=== PATIENT | female | born 1955 | race Caucasian/White ===

== ENCOUNTER 2018-08-10 20:16 | Emergency (ER) | payer SELFPAY ==
--- NOTE | 2018-08-10 20:49 | EDM.PDOC ---
ED HPI GENERAL MEDICAL PROBLEM - General Chief Complaint: Back Pain or Injury Stated Complaint: BACK ACHE Time Seen by Provider: 08/10/18 20:30 Source of Information: Reports: Patient History Limitations: Reports: No Limitations - History of Present Illness INITIAL COMMENTS - FREE TEXT/NARRATIVE: Patient comes in the emergency department with complaint of back pain. Patient states that she was doing some desk work with her body bend over for a long period time. She knows around 4 or 5:00pm tonight she began to have muscle spasms in the back. She has had in them past and has been able to control them with ibuprofen going to the chiropractor. However we are now into the weekend and there is no chiropractic services. She did take ibuprofen 800 mg approximately 3 hours ago and has had 0 relief. She describes the pain a throbbing, uncomfortable and spasms. She is unable to get comfortable or fall asleep. She would like for the evaluation and medication to help with the muscle spasms. Patient denies any chest pain, shortness breath, dizziness, lightheadedness, GI upset, urinary concerns or lower extremity edema. Denies any other concerns or complaints per she also denies any numbness or tingling in either upper extremity. States range of motion is intact and CMS is normal. Onset: Sudden Middle Back Pain Score (Numeric/FACES): 8 - Related Data Allergies Allergy/AdvReac Type Severity Reaction Status Date / Time No Known Allergies Allergy Verified 08/10/18 20:23 Home Meds: Home Meds FLUoxetine HCl [Fluoxetine HCl] 20 mg PO DAILY 08/10/18 [History] Insulin NPH Hum/Reg Insulin Hm [Relion Novolin 70-30 Vial] 10,042 unit SQ BID [History] LORazepam 1 - 2 tab PO ASDIRECTED 08/10/18 [History] Losartan/Hydrochlorothiazide [Losartan-HCTZ 50-12.5 MG] 0.5 tab PO DAILY [History] Past Medical History Cardiovascular History: Reports: Hypertension Psychiatric History: Reports: Other (See Below) Other Psychiatric History: denies depression, states she gets "bitchy" when she is not on it. Endocrine/Metabolic History: Reports: Diabetes, Type II Social & Family History - Tobacco Use Smoking Status *Q: Never Smoker ED ROS GENERAL - Review of Systems Review Of Systems: See Below Constitutional: Reports: No Symptoms HEENT: Reports: No Symptoms Respiratory: Reports: No Symptoms Cardiovascular: Reports: No Symptoms Endocrine: Reports: No Symptoms GI/Abdominal: Reports: No Symptoms : Reports: No Symptoms Musculoskeletal: Reports: Back Pain, Muscle Pain Skin: Reports: No Symptoms Neurological: Reports: No Symptoms Psychiatric: Reports: No Symptoms Hematologic/Lymphatic: Reports: No Symptoms Immunologic: Reports: No Symptoms ED EXAM, GENERAL - Physical Exam Exam: See Below Exam Limited By: No Limitations General Appearance: Alert, WD/WN, No Apparent Distress Head: Atraumatic, Normocephalic Respiratory/Chest: No Respiratory Distress, Lungs Clear, Normal Breath Sounds, No Accessory Muscle Use, Chest Non-Tender Cardiovascular: Normal Peripheral Pulses, Regular Rate, Rhythm, No Edema GI/Abdominal: Normal Bowel Sounds, Soft, Non-Tender, No Distention Back Exam: Normal Inspection, Full Range of Motion, Muscle Spasm Extremities: Normal Inspection, Normal Range of Motion, Non-Tender, Normal Capillary Refill, Slow Capillary Refill Neurological: Alert, Oriented, CN II-XII Intact, Normal Cognition, Normal Gait, No Motor/Sensory Deficits Psychiatric: Normal Affect, Normal Mood Skin Exam: Warm, Dry, Intact, Normal Color, No Rash Course - Vital Signs Last Recorded V/S: Last Vital Signs Temp 36.1 C 08/10/18 20:26 Pulse 117 H 08/10/18 20:26 Resp 18 08/10/18 20:26 BP 159/86 H 08/10/18 20:26 Pulse Ox 96 08/10/18 20:26 Departure - Departure Time of Disposition: 20:50 Disposition: Home, Self-Care 01 Condition: Good Clinical Impression: Back muscle spasm - Discharge Information *PRESCRIPTION DRUG MONITORING PROGRAM REVIEWED*: Not Applicable *COPY OF PRESCRIPTION DRUG MONITORING REPORT IN PATIENT [facility]: Not Applicable Instructions: Muscle Strain, [id number], Back Injury Prevention, [id number] , Cyclobenzaprine tablets Referrals: PCP,Not In Area [Primary Care Provider] - Additional Instructions: 1. rest 2. increase your water intake 3. Can take the Flexeril as needed for muscle spasms 3 times a day 4. Can alternate between Tylenol and ibuprofen for pain and discomfort 5. Results are recommended to use ice and minimal 20 minutes 3-4 times a day to help with inflammation and swelling. 6. You can also use heat for 20 minutes 3-4 times a day to help with the muscle spasms and contractions 7. Follow-up with her primary care provider and/or chiropractor early next week if not feeling better. 8. When taking Flexeril ensure you are not driving or operating heavy machinery' s. Your reaction time can be slowed due to the muscle relaxation. Also ensure good foot watson and be aware you may be unsteady on your feet. 9. Please call with any questions of concerns as needed. - Problem List Review Problem List Initiated/Reviewed/Updated: Yes
[2018-08-10] MEDS: Take Home: Cyclobenzaprine 10 MG Tab, 4 Tab Pack PO ONE (20:52)
== END 2018-08-10 20:57 | disposition home or self-care (01) ==
LOC: VM.ED 20:16
DX: M62.830 Muscle spasm of back (principal); I10 Essential (primary) hypertension; E11.9 Type 2 diabetes mellitus without complications; Z79.899 Other long term (current) drug therapy
CPT/HCPCS: 99282; A9270; 99283-GF